=== PATIENT | female | born 1970 | race Two or more races ===

== ENCOUNTER 2022-09-01 11:30 | Inpatient (IN) | payer OTHER ==
[~2022-09-01] VITALS: Ht 152.4 cm; Wt 77.6 kg
[2022-09-01] MEDS ORDERED: [UNRECOGNIZED DRUG - OTHER] PO (14:01)
[2022-09-01] MEDS ORDERED: LEXAP PO (14:02)
[2022-09-01] MEDS ORDERED: CLONAZEPAM0.5 MG PO (14:02)
[2022-09-03] MEDS ORDERED: METHIMAZOLE10 MG PO (08:18)
[2022-09-03] MEDS ORDERED: ESCITALOPRAM OX10 MG PO (08:19)
== END 2022-09-05 13:24 | disposition home or self-care (01) | DRG 743 ==
LOC: O/R 09-03 05:21 → OB/GYN 09-03 07:00
PROVIDERS: ADMIT Obstetrics & Gynecology; ATTEND Obstetrics & Gynecology
PROC: 0UT70ZZ Resection of Bilateral Fallopian Tubes, Open Approach (ICD-10-PCS; 2022-09-03)
PROC: 0UT20ZZ Resection of Bilateral Ovaries, Open Approach (ICD-10-PCS; 2022-09-03)
PROC: 0DNW0ZZ Release Peritoneum, Open Approach (ICD-10-PCS; 2022-09-03)
PROC: 0DN80ZZ Release Small Intestine, Open Approach (ICD-10-PCS; 2022-09-03)
PROC: 0UT90ZZ Resection of Uterus, Open Approach (ICD-10-PCS; 2022-09-03)
PROC: 0DNU0ZZ Release Omentum, Open Approach (ICD-10-PCS; 2022-09-03)
PROC: 0UN10ZZ Release Left Ovary, Open Approach (ICD-10-PCS; 2022-09-03)
PROC: 0UT90ZZ Resection of Uterus, Open Approach (ICD-10-PCS; principal; 2022-09-03 07:00)
DX: D25.1 Intramural leiomyoma of uterus (principal); D25.2 Subserosal leiomyoma of uterus; D25.0 Submucous leiomyoma of uterus; N83.312 Acquired atrophy of left ovary; N83.311 Acquired atrophy of right ovary; N73.6 Female pelvic peritoneal adhesions (postinfective); Z20.822 Contact with and (suspected) exposure to COVID-19; N95.0 Postmenopausal bleeding